=== PATIENT | male | born 1970 | race Caucasian/White ===

== ENCOUNTER 2022-07-20 16:53 | Emergency (ER) | payer MEDICAID ==
[~2022-07-20] VITALS: Ht 180.3 cm; Wt 113.4 kg
[2022-07-20 17:10] VITALS: BP 152/88
--- NOTE | 2022-07-20 17:16 | NUR ---
52/M WALKED IN C/O RIGHT SIDED ABD PAIN ACCOMPANIED BY NAUSEA AND VOMITING ONSET 4 DAYS. DENIES BLOOD IN VOMIT OR STOOL. PMH: HEP C
[2022-07-20] MEDS ORDERED: ONDANSETRON 4 MG/2 ML VIAL IVP ONE (17:30)
[2022-07-20] MEDS ORDERED: NACL 0.9% 1,000 ML IV SCH (17:30)
[2022-07-20] MEDS ORDERED: MORPHINE SULFATE 4 MG/ML SYR IVP ONE (17:30)
--- NOTE | 2022-07-20 17:30 | NUR ---
BLOOD COLLECTED AND SENT TO LAB
--- NOTE | 2022-07-20 17:40 | NUR ---
IV ESTABLISHED TO LEFT AC WITH 20G.
[2022-07-20 17:45] LABS: BASOPHILS % (AUTO) 0.8 % (0.0-2.0); EOSINOPHILS # (AUTO) 0.1 K/uL (0-0.4); EOSINOPHILS % (AUTO) 1.7 % (0.0-4.0); HEMATOCRIT 41.7 % (36-52); HEMOGLOBIN 14.8 g/dL (12.0-18.0); LYMPHOCYTES # (AUTO) 2.4 K/uL (2.0-11.5); LYMPHOCYTES % (AUTO) 41.8 % (20.5-51.1); MEAN CORPUSCULAR HEMOGLOBIN 34 pg (27-31); MEAN CORPUSCULAR HGB CONC 35 g/dL (33-37); MEAN CORPUSCULAR VOLUME 96.5 fL (80-94); MONOCYTES # (AUTO) 0.5 K/uL (0.8-1.0); MONOCYTES % (AUTO) 8.1 % (1.7-9.3); NEUTROPHILS # (AUTO) 2.8 K/uL (1.8-7.7); NEUTROPHILS % (AUTO) 47.6 % (42.2-75.2); PLATELET COUNT (AUTO) 190 K/uL (140-450); RED BLOOD CELL COUNT(AUTO) 4.32 MIL/uL (4.20-6.10); WHITE BLOOD COUNT (AUTO) 5.8 K/uL (4.8-10.8)
[2022-07-20 18:02] LABS: ALBUMIN 3.8 g/dL (3.4-5.0); ANION GAP 10.5 (8-16); CARBON DIOXIDE 27.5 mmol/L (21-32); CREATININE 0.9 mg/dL (0.6-1.3); TOTAL BILIRUBIN 0.6 mg/dL (0.0-1.0)
--- NOTE | 2022-07-20 18:30 | NUR ---
URINE COLLECTED, PT WENT TO CT
[2022-07-20 18:41] LABS: APPEARANCE,URINE CLEAR (CLEAR); BILIRUBIN,URINE NEGATIVE (NEGATIVE); BLOOD, URINE NEGATIVE (NEGATIVE); COLOR,URINE YELLOW (YELLOW); LEUKOCYTE ESTERASE ,URINE NEGATIVE (NEGATIVE); NITRITE, URINE NEGATIVE (NEGATIVE); UGLUCOSE NEGATIVE (NEGATIVE)
--- NOTE | 2022-07-20 19:21 | NUR ---
ASSUMED CARE OF PT AT THIS TIME. PT IN POSITION OF COMFORT. DENIES ANY PAIN OR NEEDS AT THIS TIME. WILL CONTINUE TO MONITOR. AWAITING MD ORDERS FOR DC HOME AND OR ADMISSION. VSS. WILL CONTINUE TO MONITOR.
[2022-07-20] MEDS ORDERED: DICYCLOMINE 10 MG CAP PO ONE (19:25)
[2022-07-20] MEDS ORDERED: KETOROLAC 15 MG/ML VIAL IVP ONE (19:25)
[2022-07-20] MEDS ORDERED: ACETAMINOPHEN 325 MG TAB PO ONE (19:25)
[2022-07-20] MEDS ORDERED: ONDA-188 PO (19:35)
--- NOTE | 2022-07-20 19:40 | NUR ---
PT MEDICATED PER ORDERS GIVEN. AWAITING DC PAPERWORK. PT AWARE.
[2022-07-20 19:52] VITALS: BP 142/78
== END 2022-07-20 19:52 | disposition home or self-care (01) ==
LOC: MED 16:53
DX: R10.11 Right upper quadrant pain (principal); R10.31 Right lower quadrant pain; Z79.899 Other long term (current) drug therapy
CPT/HCPCS: 36415; 71045; 74177; 80053; 81003; 83690; 85025; 96374; 96375; 99285; J1885; J2270; J2405; Q0092; Q9967; J7030

== ENCOUNTER 2023-04-15 19:11 | Emergency (ER) | payer MEDICAID ==
[~2023-04-15] VITALS: Ht 180.3 cm; Wt 113.4 kg
[~2023-04-15 19:11] MED LIST: ONDA-188 PO
[2023-04-15 20:45] VITALS: BP 128/93; PULSE 67; RESP 16; TEMP 97.7; O2SAT 97
[2023-04-15 22:32] LABS: BASOPHILS # (AUTO) 0.1 K/uL (0.00-0.22); BASOPHILS % (AUTO) 0.9 % (0.0-2.0); EOSINOPHILS # (AUTO) 0.1 K/uL (0-0.4); EOSINOPHILS % (AUTO) 1.6 % (0.0-4.0); HEMATOCRIT 40.8 % (36-52); HEMOGLOBIN 14.5 g/dL (12.0-18.0); LYMPHOCYTES # (AUTO) 2.2 K/uL (2.0-11.5); LYMPHOCYTES % (AUTO) 35.3 % (20.5-51.1); MEAN CORPUSCULAR HEMOGLOBIN 35 pg (27-31); MEAN CORPUSCULAR HGB CONC 36 g/dL (33-37); MEAN CORPUSCULAR VOLUME 97.3 fL (80-94); MONOCYTES # (AUTO) 0.5 K/uL (0.8-1.0); MONOCYTES % (AUTO) 8.1 % (1.7-9.3); NEUTROPHILS # (AUTO) 3.4 K/uL (1.8-7.7); NEUTROPHILS % (AUTO) 54.1 % (42.2-75.2); PLATELET COUNT (AUTO) 193 K/uL (140-450); RED CELL DISTRIBUTION WIDTH 13.3 % (11.6-13.7); WHITE BLOOD COUNT (AUTO) 6.4 K/uL (4.8-10.8)
[2023-04-15 22:53] LABS: ALANINE AMINOTRANSFERASE 28 U/L (12-78); ALBUMIN 3.7 g/dL (3.4-5.0); ALKALINE PHOSPHATASE 100 U/L (50-136); ASPARTATE AMINOTRANSFERASE 23 U/L (15-37); CALCIUM 8.2 mg/dL (8.5-10.1); CARBON DIOXIDE 25.8 mmol/L (21-32); CHLORIDE 107 mmol/L (98-107); GFR ARICAN-AMERICAN 101 mL/min (>90); GFR NON ARICAN-AMERICAN 84 mL/min (>90); GLUCOSE 146 mg/dL (74-106); POTASSIUM 3.8 mmol/L (3.5-5.1); SODIUM SERUM 142 mmol/L (136-145); TOTAL BILIRUBIN 0.6 mg/dL (0.0-1.0); TOTAL PROTEIN, SERUM 7.8 g/dL (6.4-8.2); UREA NITROGEN, BLOOD 12 mg/dL (7-18)
[2023-04-15] MEDS ORDERED: ACET-10509 PO (23:24)
[2023-04-15] MEDS ORDERED: IBUP-2218 PO (23:24)
[2023-04-15 23:55] VITALS: BP 124/67; PULSE 62; RESP 20; TEMP 98; O2SAT 98
== END 2023-04-15 23:56 | disposition home or self-care (01) ==
LOC: MED 19:11
DX: G44.209 Tension-type headache, unspecified, not intractable (principal); R55 Syncope and collapse; Z85.47 Personal history of malignant neoplasm of testis; Z79.899 Other long term (current) drug therapy; Z79.1 Long term (current) use of non-steroidal anti-inflammatories (NSAID)
CPT/HCPCS: 36415; 70450; 71045; 80053; 84484; 85025; 93005; 99285